=== PATIENT | male | born 1990 | race Caucasian/White ===

== ENCOUNTER 2020-02-10 14:21 | Emergency (ER) | payer OTHER ==
[~2020-02-10] VITALS: Ht 182.9 cm; Wt 74.8 kg
[~2020-02-10 14:21] MED LIST: AUGMENTIN 875875 MG PO; BENTYL 20 MG TA20 M1 PO; BENTYL20 MG PO; BUPRENORPHIN-N1 EACH SL; CIPRO250 M1 PO; NOHOMEMEDICATIONS; NORCO 5-325 TA1 EACH PO; PHENERGAN 25 MG25 M1 PO; TRAMADOL 50 MG50 MG PO; XANAX 0.5 MG0.5 MG PO; ZOFRAN4 MG PO
[2020-02-10 14:50] LABS: ABSOLUTE BASOPHILS 0.1 thou/uL (0.0-0.2); ABSOLUTE LYMPHOCYTES 2.5 thou/uL (0.8-5.3); ABSOLUTE MONOCYTES 0.4 thou/uL (0.0-1.2); ABSOLUTE NEUTROPHILS 7.3 thou/uL (1.6-8.1); BASOPHILS 0.6 %; EOSINOPHILS 0.2 %; HEMATOCRIT 41.4 % (42.0-52.0); HEMOGLOBIN 15.3 gm/dL (14.0-18.0); LYMPHOCYTES 24.4 %; MCH 36.3 pg (26.0-34.0); MCV 98.1 fL (80.0-100.0); MONOCYTES 3.9 %; MPV 6.7 fl. (7.2-11.1); NUCLEATED RBCS 0 /100WBC; PLATELET COUNT* 293 thou/uL (150-400); POLYS 70.9 %; RBC 4.22 mil/uL (4.50-6.00); RDW-CV 13.7 % (10.5-14.5); WBC 10.4 thou/uL (4.0-11.0)
[2020-02-10 15:06] LABS: CALCIUM 9.4 mg/dL (8.5-10.1); POTASSIUM 3.3 mmol/L (3.5-5.1)
[2020-02-10 15:11] LABS: ALBUMIN 4.4 g/dL (3.4-5.0); TOTAL BILIRUBIN 0.7 mg/dL (<0.1-1.0)
[2020-02-10 15:51] LABS: URINE BILIRUBIN NEGATIVE (Negative); URINE BLOOD NEGATIVE (Negative); URINE CLARITY CLEAR; URINE COLOR YELLOW; URINE GLUCOSE-RANDOM NEGATIVE (Negative); URINE KETONES NEGATIVE (Negative); URINE LEUKOCYTES-REFLEX NEGATIVE (Negative); URINE NITRITE-REFLEX NEGATIVE (Negative); URINE PROTEIN 1+ (Negative); URINE SPECIFIC GRAVITY 1.015 (1.005-1.030); URINE UROBILINOGEN 0.2 E.U./dl (0.2-1.0)
[2020-02-10 15:59] LABS: AMP/METHAMP Negative (Negative); BARBITURATES Negative (Negative); BENZODIAZEPINES POSITIVE (Negative); COCAINE Negative (Negative); METHADONE Negative (Negative); OPIATES POSITIVE (Negative); PCP Negative (Negative); THC POSITIVE (Negative)
[2020-02-10] MEDS ORDERED: ZOFRAN ODT4 MG DISSOLVE (17:20)
[2020-02-10 19:37] VITALS: BP 146/92
== END 2020-02-10 19:42 | disposition home or self-care (01) ==
LOC: M.ERS 14:21
PROVIDERS: Emergency Medicine Emergency Medical Services
DX: R11.15 Cyclical vomiting syndrome unrelated to migraine (principal); F12.90 Cannabis use, unspecified, uncomplicated; F17.210 Nicotine dependence, cigarettes, uncomplicated; F11.10 Opioid abuse, uncomplicated

== ENCOUNTER 2021-01-30 22:54 | Inpatient (IN) | payer OTHER ==
[~2021-01-30] VITALS: Ht 177.8 cm; Wt 73.0 kg
[~2021-01-30 22:54] MED LIST changes: +ZOFRAN ODT4 MG DISSOLVE
[2021-01-30 22:58] VITALS: BP 122/78
[2021-01-30] MEDS ORDERED: AMBIEN 10 MG TA10 MG PO (23:04)
[2021-01-30] MEDS ORDERED: XANAX XR2 MG PO (23:04)
[2021-01-31 00:39] LABS: ABSOLUTE EOSINOPHILS 0.2 thou/uL (0.0-0.7); ABSOLUTE LYMPHOCYTES 1.6 thou/uL (0.8-5.3); ABSOLUTE MONOCYTES 0.7 thou/uL (0.0-1.2); ABSOLUTE NEUTROPHILS 5.5 thou/uL (1.6-8.1); BASOPHILS 0.5 %; EOSINOPHILS 2.7 %; HEMATOCRIT 32.3 % (42.0-52.0); HEMOGLOBIN 11.7 gm/dL (14.0-18.0); LYMPHOCYTES 19.4 %; MCH 33.1 pg (26.0-34.0); MCHC 36.1 g/dL (28.0-37.0); MCV 91.7 fL (80.0-100.0); MONOCYTES 8.2 %; MPV 7.1 fl. (7.2-11.1); NUCLEATED RBCS 0 /100WBC; PLATELET COUNT* 232 thou/uL (150-400); POLYS 69.2 %; RBC 3.53 mil/uL (4.50-6.00); RDW-CV 12.8 % (10.5-14.5)
[2021-01-31 00:51] LABS: POTASSIUM 3.7 mmol/L (3.5-5.1)
[2021-01-31 00:55] LABS: ALBUMIN 3.6 g/dL (3.4-5.0); TOTAL BILIRUBIN 0.2 mg/dL (<0.1-1.0); TOTAL PROTEIN 6.7 g/dL (6.4-8.2)
[2021-01-31 01:01] LABS: ALCOHOL 42 mg/dL (<10); SALICYLATE 3.1 mg/dL (2.8-20.0)
[2021-01-31 01:03] LABS: ACETAMINOPHEN < 2 ug/mL (10-30)
[2021-01-31 01:18] LABS: URINE BILIRUBIN NEGATIVE (Negative); URINE BLOOD 1+ (Negative); URINE CLARITY CLEAR; URINE COLOR YELLOW; URINE GLUCOSE-RANDOM NEGATIVE (Negative); URINE KETONES NEGATIVE (Negative); URINE LEUKOCYTES-REFLEX NEGATIVE (Negative); URINE NITRITE-REFLEX NEGATIVE (Negative); URINE PROTEIN 2+ (Negative); URINE SPECIFIC GRAVITY >= 1.030 (1.005-1.030)
[2021-01-31 01:26] LABS: AMP/METHAMP POSITIVE (Negative); BARBITURATES Negative (Negative); BENZODIAZEPINES POSITIVE (Negative); COCAINE Negative (Negative); METHADONE Negative (Negative); OPIATES POSITIVE (Negative); PCP Negative (Negative); THC Negative (Negative)
[2021-01-31 01:34] LABS: FINE GRANULAR CASTS 0-3 Few /LPF (None Seen); MUCUS 4-6 Moderate strn/LPF (None Seen); SQUAMOUS 0-3 Few /LPF (0-3); URINE WBC-REFLEX 6-15 Few /HPF (0-5); WBC CLUMPS Few (None Seen)
[2021-01-31 01:35] LABS: AMORPHOUS URATES Few /LPF (None Seen)
[2021-01-31 08:39] VITALS: BP 141/92
[2021-01-31 09:30] VITALS: BP 139/110
[2021-01-31 12:00] VITALS: BP 126/85
--- NOTE | 2021-01-31 14:20 | EKG ---
[place] [address] ELECTROCARDIOGRAM REPORT Name: RONSORAYA Room: [address] M.R.#: [id number] Admission: 01/31/21 Attend Phys: Timo Soto, Discharge: Date of : 89 Date of Service: 01/30/21 2257 Report #: [id number] THIS REPORT FOR: //name// [facility] ED Test Date: 2021-01-30 Test Time: 22:57:20 Pat Name: SORAYA VELASQUEZ Department: Room: [facility] Gender: M [employer]: MIGUEL : 1990 Requested By: Sarah Hansen Order Number: [id number] MD: Federico Guillory Measurements Intervals [place] Rate: 98 P: 64 WI: 144 QRS: 32 QRSD: 95 T: 53 QT: 358 QTc: 458 Interpretive Statements Sinus rhythm Compared to ECG 06/19/2016 09:00:39 No significant changes Electronically Signed On 01-31-2021 14:19:51 CDT by Federico Guillory [email or web address] <ELECTRONICALLY SIGNED> By: Federico Guillory MD, [facility] 01/31/21 1419 2257 2257 Federico Guillory MD, [facility] /EPI
[2021-01-31 16:00] VITALS: BP 151/97
[2021-01-31 23:32] VITALS: BP 138/96
[2021-02-01 03:50] VITALS: BP 140/98
[2021-02-01 04:21] LABS: ABSOLUTE LYMPHOCYTES 1.8 thou/uL (0.8-5.3); ABSOLUTE MONOCYTES 1.2 thou/uL (0.0-1.2); ABSOLUTE NEUTROPHILS 7.9 thou/uL (1.6-8.1); BASOPHILS 0.1 %; HEMATOCRIT 31.4 % (42.0-52.0); HEMOGLOBIN 11.3 gm/dL (14.0-18.0); LYMPHOCYTES 16.8 %; MCHC 36.1 g/dL (28.0-37.0); MCV 91.6 fL (80.0-100.0); MONOCYTES 10.9 %; MPV 7.6 fl. (7.2-11.1); NUCLEATED RBCS 0 /100WBC; PLATELET COUNT* 241 thou/uL (150-400); POLYS 72.2 %; RBC 3.43 mil/uL (4.50-6.00); RDW-CV 12.8 % (10.5-14.5); WBC 10.9 thou/uL (4.0-11.0)
[2021-02-01 04:41] LABS: CALCIUM 8.1 mg/dL (8.5-10.1); CREATININE 0.8 mg/dL (0.6-1.3); POTASSIUM 3.1 mmol/L (3.5-5.1)
[2021-02-01 08:00] VITALS: BP 159/83
[2021-02-01 12:00] VITALS: BP 131/83
[2021-02-01 16:00] VITALS: BP 141/96
[2021-02-01 20:00] VITALS: BP 110/72
[2021-02-02] VITALS: BP 155/104
[2021-02-02 08:00] VITALS: BP 150/89
[2021-02-02 12:00] VITALS: BP 126/72
[2021-02-02 15:54] VITALS: BP 111/59
[2021-02-02 20:54] LABS: ALBUMIN 3.6 g/dL (3.4-5.0); CALCIUM 8.5 mg/dL (8.5-10.1); CREATININE 0.9 mg/dL (0.6-1.3); POTASSIUM 3.1 mmol/L (3.5-5.1); TOTAL BILIRUBIN 0.6 mg/dL (<0.1-1.0); TOTAL PROTEIN 6.9 g/dL (6.4-8.2)
[2021-02-02 23:46] VITALS: BP 13/91
[2021-02-03 04:39] VITALS: BP 139/86
[2021-02-03 08:00] VITALS: BP 121/60
[2021-02-03 11:57] VITALS: BP 151/105
[2021-02-03 15:58] VITALS: BP 139/91
[2021-02-03 20:00] VITALS: BP 144/93
[2021-02-03 22:59] LABS: CALCIUM 9.2 mg/dL (8.5-10.1); POTASSIUM 3.5 mmol/L (3.5-5.1)
[2021-02-04 00:25] VITALS: BP 113/70
[2021-02-04 08:23] VITALS: BP 118/67
[2021-02-04 11:05] VITALS: BP 118/67
[2021-02-04 12:00] VITALS: BP 140/95
[2021-02-04 13:18] VITALS: BP 118/67
== END 2021-02-04 13:18 | disposition home or self-care (01) | DRG 917 ==
LOC: M.ERS 22:54 → M.TBA-ER 01-31 07:01 → M.ERS 01-31 07:01 → M.TBA-ER 01-31 07:01 → M.2W 01-31 09:44
PROVIDERS: Emergency Medicine; Internal Medicine; ADMIT Internal Medicine; ATTEND Internal Medicine
DX: T40.1X2A Poisoning by heroin, intentional self-harm, initial encounter (principal); G92 Toxic encephalopathy; R45.851 Suicidal ideations; Z20.822 Contact with and (suspected) exposure to COVID-19; F41.0 Panic disorder [episodic paroxysmal anxiety]; F17.210 Nicotine dependence, cigarettes, uncomplicated; D64.9 Anemia, unspecified; F11.10 Opioid abuse, uncomplicated; Y92.89 Other specified places as the place of occurrence of the external cause; Z79.899 Other long term (current) drug therapy